=== PATIENT | male | born 1975 | race Caucasian/White ===

== ENCOUNTER 2016-12-25 22:18 | Emergency (ER) | payer OTHER ==
[~2016-12-25] VITALS: Ht 172.7 cm; Wt 65.8 kg
[2016-12-25 22:18] VITALS: BP 132/83
[~2016-12-25 22:18] MED LIST: ADDERALL 20 MG20 M1 PO; AZITHROMYCIN 2250 MG PO; ELAVIL PO; LORTABELXR PO; NEXIUM40 MG PO; OXYCODONE H5 MG/5 ML PO; OXYCODONE HCL15 MG PO; PENICILLIN VK500 M1 PO; PERCOCET 10-321 EACH PO; PERCOCET 5-3251 EACH PO; TRAMADOL 50 MG50 MG PO; ULTRAM 50MG TAB50 MG PO; ZOFRAN8 MG PO
[2016-12-25 22:42] LABS: HEMATOCRIT 37.8 % (42.0-52.0); HEMOGLOBIN 12.4 gm/dL (14.0-18.0); MCH 27.1 pg (26.0-34.0); MCHC 32.9 g/dL (28.0-37.0); MCV 82.2 fL (80.0-100.0); PLATELET COUNT 242 thou/uL (150-400); RDW 14.4 % (10.5-14.5); WBC 2.4 thou/uL (4.0-11.0)
[2016-12-25 22:44] LABS: MANUAL DIFF YES
[2016-12-25 22:50] LABS: CALCIUM 8.9 mg/dL (8.5-10.1); CREATININE 0.7 mg/dL (0.7-1.3); POTASSIUM 4.2 mmol/L (3.5-5.1)
[2016-12-25 23:13] LABS: ABSOLUTE NEUTROPHILS 1.8 thou/uL (1.4-8.2); ANISOCYTOSIS SLIGHT; TOTAL CELL COUNT 100
== END 2016-12-25 23:47 | disposition left against medical advice (07) ==
LOC: ER 22:18
PROVIDERS: Emergency Medicine
DX: R41.82 Altered mental status, unspecified (principal); J45.909 Unspecified asthma, uncomplicated; Z88.5 Allergy status to narcotic agent; Z88.8 Allergy status to other drugs, medicaments and biological substances

== ENCOUNTER 2017-12-17 20:56 | Emergency (ER) | payer OTHER ==
[~2017-12-17] VITALS: Ht 175.3 cm; Wt 79.4 kg
--- NOTE | ~2017-12-17 | EKG ---
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 balderas : 1975 Requested By: Deborah Cardoso Order Number: [id number] MD: Marbin Shi Measurements Intervals Edison Rate: 66 P: 80 TN: 113 QRS: 78 QRSD: 98 T: 54 QT: 413 QTc: 433 Interpretive Statements Sinus rhythm Borderline short TN interval ST elev, probable normal early repol pattern Compared to ECG 06/20/2010 15:53:44 ST (T wave) deviation now present Early repolarization no longer present Electronically Signed On 12-18-2017 8:09:39 CDT by Marbin Shi [email or web address] <ELECTRONICALLY SIGNED> By: Marbin Shi MD 12/18/17808 55 55 Marbin Shi MD /EPI
[2017-12-17] MEDS ORDERED: BENADRYL25 MG PO (21:05)
[2017-12-17 21:42] LABS: EOSINOPHILS 5.5 % (0.0-3.0); HEMOGLOBIN 13.7 gm/dL (14.0-18.0); LYMPHOCYTES 28.3 % (24.0-44.0); MCH 28.7 pg (26.0-34.0); MCHC 33.5 g/dL (28.0-37.0); MCV 85.9 fL (80.0-100.0); MONOCYTES 7.2 % (1.0-8.0); PLATELET COUNT 227 thou/uL (150-400); RBC 4.78 mil/uL (4.50-6.00); RDW 13.6 % (10.5-14.5); WBC 3.6 thou/uL (4.0-11.0)
[2017-12-17 21:45] LABS: ANION GAP 4 mmol/L (7-16); BUN 19 mg/dL (7-18); CALCIUM 9.4 mg/dL (8.5-10.1); CHLORIDE 104 mmol/L (98-107); CO2 33 mmol/L (21-32); GLUCOSE 100 mg/dL (74-106); POTASSIUM 3.6 mmol/L (3.5-5.1); SODIUM 141 mmol/L (136-145)
[2017-12-17 21:54] LABS: TROPONIN-I < 0.04 ng/mL (<0.06)
[2017-12-17 23:07] VITALS: BP 115/74
== END 2017-12-17 23:09 | disposition home or self-care (01) ==
LOC: ER 20:56
PROVIDERS: Emergency Medicine
DX: R07.9 Chest pain, unspecified (principal); J45.909 Unspecified asthma, uncomplicated; M54.9 Dorsalgia, unspecified; G89.29 Other chronic pain; Z88.1 Allergy status to other antibiotic agents; Z88.5 Allergy status to narcotic agent